=== PATIENT | male | born 1950 | race Caucasian/White ===

== ENCOUNTER 2023-05-15 09:06 | Outpatient (RCR) | payer MEDICARE, OTHER, SELFPAY | END 2023-05-15 23:59 | disposition home or self-care (01) | LOC: RPT 09:06 | PROVIDERS: ATTENDING PHYSICIAN Nurse Practitioner Family; FAMILY PHYSICIAN Internal Medicine | DX: M54.50 Low back pain, unspecified (principal); M62.89 Other specified disorders of muscle; N39.41 Urge incontinence; R35.1 Nocturia; Z73.6 Limitation of activities due to disability; C61 Malignant neoplasm of prostate | CPT/HCPCS: 97110 ==

== ENCOUNTER 2023-05-26 09:38 | Outpatient (RCR) | payer MEDICARE, OTHER, SELFPAY | END 2023-05-26 23:59 | disposition home or self-care (01) | LOC: RPT 09:38 | PROVIDERS: ATTENDING PHYSICIAN Family Medicine Geriatric Medicine; FAMILY PHYSICIAN Internal Medicine | DX: M62.89 Other specified disorders of muscle (principal); Z73.6 Limitation of activities due to disability; N39.41 Urge incontinence; R35.1 Nocturia; Z85.46 Personal history of malignant neoplasm of prostate | CPT/HCPCS: 97110; 97162; 97530 ==

== ENCOUNTER 2023-06-25 12:00 | Outpatient (RCR) | payer MEDICARE, OTHER, SELFPAY | END 2023-06-25 23:59 | disposition home or self-care (01) | LOC: RPT 12:00 | PROVIDERS: ATTENDING PHYSICIAN Family Medicine Geriatric Medicine; FAMILY PHYSICIAN Internal Medicine | DX: C61 Malignant neoplasm of prostate (principal); M62.89 Other specified disorders of muscle; N39.41 Urge incontinence; R35.1 Nocturia; Z73.6 Limitation of activities due to disability | CPT/HCPCS: 97112; 97530 ==

== ENCOUNTER 2023-07-23 12:12 | Outpatient (RCR) | payer MEDICARE, OTHER, SELFPAY | END 2023-07-23 23:59 | disposition home or self-care (01) | LOC: RPT 12:12 | PROVIDERS: ATTENDING PHYSICIAN Family Medicine Geriatric Medicine; FAMILY PHYSICIAN Internal Medicine | DX: C61 Malignant neoplasm of prostate (principal); M62.89 Other specified disorders of muscle; N39.41 Urge incontinence; R35.1 Nocturia; Z73.6 Limitation of activities due to disability | CPT/HCPCS: 97110; 97112; 97140; 97530 ==

== ENCOUNTER 2023-08-18 12:10 | Outpatient (RCR) | payer MEDICARE, OTHER, SELFPAY | END 2023-08-18 23:59 | disposition home or self-care (01) | LOC: RPT 12:10 | PROVIDERS: ATTENDING PHYSICIAN Family Medicine Geriatric Medicine; FAMILY PHYSICIAN Internal Medicine | DX: C61 Malignant neoplasm of prostate (principal); M62.89 Other specified disorders of muscle; N39.41 Urge incontinence; R35.1 Nocturia; Z73.6 Limitation of activities due to disability | CPT/HCPCS: 97110; 97112; 97530 ==

== ENCOUNTER 2023-09-24 12:07 | Outpatient (RCR) | payer MEDICARE, OTHER, SELFPAY | END 2023-09-24 23:59 | disposition home or self-care (01) | LOC: RPT 12:07 | PROVIDERS: ATTENDING PHYSICIAN Family Medicine Geriatric Medicine; FAMILY PHYSICIAN Internal Medicine | DX: R35.1 Nocturia (principal); M62.89 Other specified disorders of muscle; N39.41 Urge incontinence; Z73.6 Limitation of activities due to disability | CPT/HCPCS: 97110; 97112; 97530 ==